=== PATIENT | male | born 1995 | race Hispanic/Latino ===

== ENCOUNTER 2023-11-08 10:28 | Emergency (ER) | payer SELFPAY ==
--- NOTE | ~2023-11-08 | CT_ITS ---
EXAMINATION: CT abdomen pelvis wo con DATE: 11/08/2023 13:02 INDICATION: Upper abdominal pain. TECHNIQUE: Computed tomography (CT) of the abdomen and pelvis was performed without intravenous contr ast. Automated exposure control and iterative reconstruction technique were employed. The dose-length product was 705.75 mGy-cm. COMPARISON: None. FINDINGS: The visualized portions of the lung bases demonstrate mild atelectasis. No pleural effusion . The heart size is normal. No pericardial effusion. The liver is normal. There are gallstones in the gallbladder, which is distended. Gallbladder wall thickening is noted. There is pericholecystic fat stranding. The spleen, pancreas, adrenal glands, and kidneys are normal. There are no dilated loops o f bowel. The appendix is normal. There are no pathologically enlarged lymph nodes. There is no free i ntraperitoneal fluid. There is mild thoracic spondylosis. IMPRESSION: 1. Acute cholecystitis. Reviewed, dictated and finalized at [facility]. IMPRESSION: 1. Acute cholecystitis.
[2023-11-08 10:50] VITALS: BP 135/87; PULSE 102; RESP 18; TEMP 36.1; O2SAT 99
[2023-11-08 11:28] LABS: Basophils Percent Auto 0.3 % (0.2-1.2); Eosinophils Percent Auto 0.1 % (0-4.4); Hematocrit 44.3 % (42.0-52.0); Hemoglobin 14.7 g/dL (14.0-18.0); Immature Granulocyte Absolute 0.06 K/mm3 (0.00-0.031); Immature Granulocyte Percent A 0.4 % (0-0.5); Lymphocytes Absolute Auto 1.72 K/mm3 (0.9-3.2); Lymphocytes Percent Auto 10.9 % (18.3-44.2); Mean Corpuscular HGB Conc 33.2 g/dl (32-36); Mean Corpuscular Hemoglobin 29.1 pg (26-34); Mean Corpuscular Volume 87.7 fl (80-100); Mean Platelet Volume 9.1 fl (7.4-10.4); Monocytes Absolute Auto 1.5 K/mm3 (0.1-0.6); Monocytes Percent Auto 9.7 % (2.6-8.5); Neutrophils Absolute Auto 12.5 K/mm3 (1.3-6.7); Neutrophils Percent Auto 78.6 % (45.5-73.1); Platelet Count Result 396 k/mm3 (150-375); Red Blood Count 5.05 M/mm3 (4.6-6.20); Red Cell Distribution Width 12.7 % (11.5-14.5); White Blood Count 15.8 K/mm3 (4.5-10.0)
[2023-11-08 11:48] LABS: Alanine Aminotransferase 40 U/L (6-50); Albumin Level 4.8 g/dL (3.5-5.1); Alkaline Phosphatase 69 U/L (38-126); Anion Gap 7 mmol/L (4-12); Aspartate Amino Transferase 51 U/L (17-59); Bilirubin,Total 1.3 mg/dL (0.2-1.3); Blood Urea Nitrogen 11 mg/dL (9-20); Calcium 9.8 mg/dL (8.4-10.2); Carbon Dioxide 26 mmol/L (22-30); Chloride 103 mmol/L (98-107); Estimated CRCL calculation 147 ml/min; Estimated Glomerular Filt Rate > 60; Glucose 114 mg/dL (65-110); Lipase 60 U/L (23-300); Potassium 4.6 mmol/L (3.4-5.0); Sodium 136 mmol/L (137-145)
[2023-11-08 12:33] LABS: Appearance Urine Turbid (Clear); Bacteria Urine None Seen /hpf; Bilirubin Urine Negative (Negative); Blood Urine 1+ (Negative); Color Urine Yellow (Yellow); Glucose Urine UA Negative (Negative); Ketones Urine Negative (Negative); Leukocyte Esterase Ur Negative LEU/UL (Negative); Nitrate Urine Negative (Negative); Non Pathogenic Casts 0-2; Protein Urine Negative (Negative); RBC Urine 21-50 /hpf (0-2); Specific Grav Ur 1.016 (1.001-1.035); Squamous Epithelial Cell Urine None Seen /hpf (Few); Urobilinogen Urine 0.2 mg/dL (<2.0); WBC Urine 0-5 /hpf (0-3); pH Urine 7.5 (5.0-9.0)
[2023-11-08 12:34] LABS: Add Urine Microscopic? YES
[2023-11-08] MEDS: FAMOTIDINE 20 MG/2 ML VIAL IV PUSH (12:42)
[2023-11-08] MEDS: KETOROLAC 15 MG/ML VIAL (*BKC) IV PUSH (12:43)
--- NOTE | 2023-11-08 13:12 | ED.ABDPAIN ---
HPI - Abdominal Pain General Chief Complaint: Abdominal Pain Stated Complaint: abd pain x4 days Time Seen by Provider: 11/08/23 12:11 History of Present Illness HPI narrative: Pt presents with upper abdominal pain radiating through to the back for 4 days. Pt denies urinary symptoms or nausea or vomiting. Pt says he has not been able to move bowels for 4 days. Pt denies fever. Related Data Allergies Allergy/AdvReac Type Severity Reaction Status Date / Time No Known Allergies Allergy Verified 11/08/23 12:35 Review of Systems Review of Systems: All systems reviewed & are unremarkable except as noted in HPI and below Exam Const: General: healthy appearing and no acute distress Nutritional Appearance: well nourished Orientation/consciousness: patient oriented x3 Limitations: no limitations Chest: Chest palpation & inspection: normal inspection of the chest Resp: Effort & Inspection: normal respiratory effort Auscultation: clear to auscultation bilaterally Cardio: Rate: regular rate GI: GI Palp: Yes Soft to palpation and Yes Tenderness to palpation present (GI) (mild epigastric) Auscultation: normal bowel sounds Back/Spine/Pelvis: Back: CVA tenderness (right) Skin: General skin exam: normal color Rashes: no rashes Wounds: no wounds Neuro: General: patient oriented x3, moves all extremities, no meningeal signs and no focal motor deficits Speech: normal speech Extrem: General: normal to inspection and no clubbing, cyanosis or edema Course Vital Signs Vital signs: Vital Signs Temperature 97.0 F L 11/08/23 10:50 Pulse Rate 102 H 11/08/23 10:50 Respiratory Rate 18 11/08/23 10:50 Blood Pressure 135/87 11/08/23 10:50 Pulse Oximetry 99 11/08/23 10:50 Oxygen Delivery Room Air 11/08/23 10:50 Temperature 97.0 F L 11/08/23 10:50 Pulse Rate 75 11/08/23 13:46 Respiratory Rate 16 11/08/23 13:46 Blood Pressure 132/87 11/08/23 13:46 Pulse Oximetry 100 11/08/23 13:46 Oxygen Delivery Room Air 11/08/23 10:50 MDM - Abdominal Pain MDM Narrative Medical decision making narrative: Discussed with Dr Morris said to send home on cipro or augmentin and pain medicine and have follow up in office for surgery when GB calmed down. discussed with pt through night worker and pt understands and agrees to follow up with Dr Morris. Pt was instructed to return with increased pain or vomiting or fever or any concerns. He verbalized understanding with intermpreter. Differential Diagnosis Differential diagnosis: Likely abdominal pain, calculus of kidney, constipation, gastroenteritis, pancreatitis and small bowel obstruction Lab Data 11/08/23 11:22 11/08/23 11:22 Labs: Lab Results 11/08/23 11/08/23 Range/Units 11:22 12:18 WBC 15.8 H (4.5-10.0) K/mm3 RBC 5.05 (4.6-6.20) M/mm3 Hgb 14.7 (14.0-18.0) g/dL Hct 44.3 (42.0-52.0) % MCV 87.7 (80-100) fl MCH 29.1 (26-34) pg MCHC 33.2 (32-36) g/dl RDW 12.7 (11.5-14.5) % Plt Count 396 H (150-375) k/mm3 MPV 9.1 (7.4-10.4) fl Immature Gran % (Auto) 0.4 (0-0.5) % Neut % (Auto) 78.6 H (45.5-73.1) % Lymph % (Auto) 10.9 L (18.3-44.2) % Glenn % (Auto) 9.7 H (2.6-8.5) % Eos % (Auto) 0.1 (0-4.4) % Baso % (Auto) 0.3 (0.2-1.2) % Lymph # (Auto) 1.72 (0.9-3.2) K/mm3 Glenn # (Auto) 1.5 H (0.1-0.6) K/mm3 Eos # (Auto) 0.0 (0-0.3) K/mm3 Baso # (Auto) 0.0 (0.0-0.1) K/mm3 Abs Immat Gran (auto) 0.06 H (0.00-0.031) K/mm3 Absolute Neuts (auto) 12.5 H (1.3-6.7) K/mm3 Absolute Nucleated RBC 0.000 (0.0-0.012) K/mm3 Nucleated RBC % 0.0 (0.0-0.2) % Sodium 136 L (137-145) mmol/L Potassium 4.6 (3.4-5.0) mmol/L Chloride 103 (98-107) mmol/L Carbon Dioxide 26 (22-30) mmol/L Anion Gap 7 (4-12) mmol/L BUN 11 (9-20) mg/dL Creatinine 0.60 L (0.7-1.3) mg/dL Estim Creat Clear Calc 147 ml/min Estimated GFR > 60 (59 - ) Glucose 114
[2023-11-08 13:46] VITALS: BP 132/87; PULSE 75; RESP 16; O2SAT 100
== END 2023-11-08 14:45 | disposition home or self-care (01) ==
PROVIDERS: Emergency Medicine; Emergency Provider Emergency Medicine
DX: K81.0 Acute cholecystitis (principal)
CPT/HCPCS: 36415; 74176; 80053; 81001; 83690; 85025; 96374; 96375; 99284; J1885

== ENCOUNTER 2023-11-10 09:42 | Inpatient (IN) | payer SELFPAY ==
[2023-11-10] VITALS (15 sets, daily range): BP systolic 111–157; BP diastolic 77–96; PULSE 64–98; RESP 16–27; TEMP 36.9–37; O2SAT 96–100; BMI 32.7
--- NOTE | ~2023-11-10 | US_ITS ---
US right upper quadrant DATE: 11/10/2023 10:50 INDICATION: Right upper quadrant abdominal pain TECHNIQUE: Real-time imaging of the liver, pancreas, gallbladder COMPARISON: 11/08/2023 CT abdomen pelvis FINDINGS: No hepatic or pancreatic space-occupying mass lesion is evident. Normal hepatopedal portal venous flow direction. The common bile duct measures up to 5.9 mm, within upper normal range. There is sludge in the dependent aspect of the gallbladder. A single approximately similar gallstone is noted. The gallbladder wall measures up to approximately 4 mm thickness. Negative sonographic Murp hy's sign is not necessarily of clinical value given the fact that the patient is reportedly on morph ine. IMPRESSION: Cholelithiasis and gallbladder wall thickening, sludge in the dependent gallbladder. Acut e cholecystitis is suspected based upon the sonographic and recent CT abdomen findings. Reviewed, dictated and finalized at [facility]. Reviewed, dictated and finalized at location [facility]. IMPRESSION: Cholelithiasis and gallbladder wall thickening, sludge in the depen dent gallbladder. Acute cholecystitis is suspected based upon the sonographic a nd recent CT abdomen findings.
--- NOTE | 2023-11-10 09:53 | ED.ABDPAIN ---
HPI - Abdominal Pain General Chief Complaint: Abdominal Pain <FELICIA Wilson Last Filed: 11/10/23 17:12> Stated Complaint: Right Flank Pain, Vomiting <FELICIA Wilson Last Filed: 11/10/23 17:12> Time Seen by Provider: 11/10/23 09:45 <FELICIA Wilson Last Filed: 11/10/23 17:12> Source: patient and credit compliance officer <FELICIA Wilson Last Filed: 11/10/23 17:12> Mode of arrival: ambulatory <FELICIA Wilson Last Filed: 11/10/23 17:12> Limitations: language barrier <FELICIA Wilson Last Filed: 11/10/23 17:12> History of Present Illness HPI narrative: This is a 27-year-old male who speaks Bahamian and is here for chief complaint of right upper quadrant pain for the past several days. Patient reports that he was just here 2 days ago with diagnosis of acute cholecystitis. It was felt that he was able to go home. He has had increasing pain and increasing vomiting. He is unable to tolerate water without vomiting. Patient reports the pain is still located in the right upper quadrant radiates to the right flank. Denies GI bleeding symptoms, chest pain, shortness of breath, cough, fevers, chills. <Jaret Abebe PA-C - Last Filed: 11/10/23 17:12> Related Data Allergies/Adverse Reactions: Allergies Allergy/AdvReac Type Severity Reaction Status Date / Time No Known Allergies Allergy Verified 11/10/23 09:54 <FELICIA Wilson Last Filed: 11/10/23 17:12> Review of Systems Review of Systems: All systems as dictated in HPI <FELICIA Wilson Last Filed: 11/10/23 17:12> [facility] Social History Social History: Social History Smoking status: Never smoker Alcohol intake: never Substance use: never Do You Feel Safe in your Home?: Yes Lack of Transportation: No Lack of Food: Never True Current Housing: I Have Housing Concerned About Future Housing: No Difficulty Paying Gas/Electric Bills: No Difficulty Paying for Meds: No Currently Unemployed: No Education: High School Diploma/GED Difficulty w/ Childcare or Family Care: No Spiritual care concerns: No <Jaret Abebe PA-C - Last Filed: 11/10/23 17:12> Exam Narrative: GENERAL: Well-appearing, well-nourished, and in no acute distress. HEAD: Normocephalic, atraumatic. EYES: PERRLA and EOMI. ENT: Nares clear, no rhinorrhea or epistaxis. Mucous membranes moist. Oropharynx without tonsillar hypertrophy exudate or other lesions. NECK: Supple. No adenopathy or masses. CHEST: No respiratory distress. Clear to auscultation. No wheezes rales or rhonchi HEART: Regular rate and rhythm. No murmur heard. Normal peripheral pulses. ABDOMEN: Focal right upper quadrant tenderness present. Soft, otherwise nontender, nondistended, normal active bowel sounds. MSK: Normal range of motion. No edema. SKIN: Warm, dry, no rash. NEURO: Alert and oriented x3. No focal deficits. PSYCH: Normal mood and affect. <Jaret Abebe PA-C - Last Filed: 11/10/23 17:12> Course [employer]CLE SALESPERSON/PA Physician Supervision Agree with the management. Did see the patient he seemed to be comfortable . <Sly Alba MD - Last Filed: 11/10/23 14:11> Vital Signs Vital signs: Vital Signs Temperature 98.6 F 11/10/23 09:50 Pulse Rate 94 11/10/23 09:50 Respiratory Rate 27 H 11/10/23 09:50 Blood Pressure 157/93 H 11/10/23 09:50 Pulse Oximetry 99 11/10/23 09:50 Oxygen Delivery Room Air 11/10/23 09:50 Temperature 98.6 F 11/10/23 16:31 Pulse Rate 87 11/10/23 16:31 Respiratory Rate 16 11/10/23 16:31 Blood Pressure 142/89 H 11/10/23 16:31 Pulse Oximetry 98 11/10/23 16:31 Oxygen Delivery Room Air 11/10/23 14:06 <Jaret Abebe PA-C - Last Filed: 11/10/23 17:12> Vital Signs Temperature 98.6 F 11/10/23 09:50 Pulse Rate 94 11/10/23 09:50 Respiratory Rate 27 H 11/10/23 09:50 Blood Pressure 157/93 H 11/10/23 09:50 Pulse Oximetry 99 0
--- NOTE | 2023-11-10 09:54 | ECG_ITS ---
SEE SCANNED COPY FOR CONFIRMED REPORT MTDD
[2023-11-10] MEDS: SODIUM CHLORIDE 0.9% IV 1,000 ML 999 ML IV CONT (10:03)
[2023-11-10] MEDS: MORPHINE SULFATE (*CRX) 4 MG/ML INJ IV PUSH ×6 (10:03→23:00)
[2023-11-10] MEDS: ONDANSETRON INJ 4 MG/2 ML VIAL IV PUSH ×3 (10:03→17:48)
[2023-11-10 10:24] LABS: Partial Thromboplastin Time 28.3 Seconds (22.3-36.8)
[2023-11-10 10:25] LABS: Alanine Aminotransferase 84 U/L (6-50); Albumin Level 4.8 g/dL (3.5-5.1); Alkaline Phosphatase 119 U/L (38-126); Anion Gap 9 mmol/L (4-12); Aspartate Amino Transferase 59 U/L (17-59); Bilirubin,Total 0.9 mg/dL (0.2-1.3); Blood Urea Nitrogen 12 mg/dL (9-20); Calcium 10.5 mg/dL (8.4-10.2); Carbon Dioxide 28 mmol/L (22-30); Chloride 101 mmol/L (98-107); Estimated CRCL calculation 132 ml/min; Estimated Glomerular Filt Rate > 60; Glucose 112 mg/dL (65-110); Lipase 46 U/L (23-300); Potassium 4.1 mmol/L (3.4-5.0); Sodium 138 mmol/L (137-145)
[2023-11-10 10:40] LABS: Basophils Percent Auto 0.3 % (0.2-1.2); Eosinophils Absolute Auto 0.1 K/mm3 (0-0.3); Eosinophils Percent Auto 1.1 % (0-4.4); Hemoglobin 14.6 g/dL (14.0-18.0); Immature Granulocyte Absolute 0.03 K/mm3 (0.00-0.031); Immature Granulocyte Percent A 0.3 % (0-0.5); Lymphocytes Absolute Auto 1.14 K/mm3 (0.9-3.2); Lymphocytes Percent Auto 10.9 % (18.3-44.2); Mean Corpuscular HGB Conc 33.2 g/dl (32-36); Mean Corpuscular Hemoglobin 29.1 pg (26-34); Mean Corpuscular Volume 87.6 fl (80-100); Mean Platelet Volume 8.9 fl (7.4-10.4); Monocytes Absolute Auto 0.9 K/mm3 (0.1-0.6); Monocytes Percent Auto 8.7 % (2.6-8.5); Neutrophils Absolute Auto 8.2 K/mm3 (1.3-6.7); Neutrophils Percent Auto 78.7 % (45.5-73.1); Platelet Count Result 436 k/mm3 (150-375); Red Blood Count 5.02 M/mm3 (4.6-6.20); Red Cell Distribution Width 12.5 % (11.5-14.5); White Blood Count 10.5 K/mm3 (4.5-10.0)
[2023-11-10] MEDS: HYDROmorphone HCL INJ (*CRX) 1 MG/ML SYR 0.5 MG IV PUSH (11:21)
[2023-11-10 11:42] LABS: Appearance Urine Clear (Clear); Bacteria Urine None Seen /hpf; Bilirubin Urine Negative (Negative); Blood Urine Non-Hemolyzed Trace (Negative); Color Urine Yellow (Yellow); Glucose Urine UA Negative (Negative); Ketones Urine Trace mg/dL (Negative); Leukocyte Esterase Ur Negative LEU/UL (Negative); Nitrate Urine Negative (Negative); Non Pathogenic Casts 0-2; Protein Urine Negative (Negative); Specific Grav Ur 1.007 (1.001-1.035); Squamous Epithelial Cell Urine None Seen /hpf (Few); Urobilinogen Urine 0.2 mg/dL (<2.0); WBC Urine 0-5 /hpf (0-3); pH Urine 7.5 (5.0-9.0)
[2023-11-10 11:54] LABS: Add Urine Microscopic? YES
[2023-11-10] MEDS: PIPERACILLN/TAZ 3.375GM/NS50ML 3.375 GM/50 ML BAG IVPB ×2 (12:06→17:56)
--- NOTE | 2023-11-10 13:55 | ADMGEN ---
This patient, Iggy Reeder, was admitted to 2 Medical Room 241-01 at 1240. Patient/family oriented to hospital policies and general routines including ID bracelet, bed and alarms, visiting hours, pain management, procedures, bathroom and other care routines, personal items, smoking policy, room service/diet, and visiting hours. Information on how to activate the Rapid Response Team has been discussed. Patient/Family are encouraged to report perceived risks to care and to ask questions if they do not understand what they are told or what they should do.
[2023-11-10] MEDS: SODIUM CHLORIDE 0.9% IV 1,000 ML 125 ML IV CONT (17:48)
--- NOTE | 2023-11-10 22:55 | PM.IMHP ---
H&P: HPI History of Present Illness Date/Time: 11/10/23 22:55 Chief Complaint: Right upper quadrant pain Narrative: Patient is a 27-year-old man with limited ability to speak Macedonian. He came to the emergency room 2 days ago with a 4 day history of right upper quadrant abdominal pain and nausea. He had an elevated white count and imaging suggest a cholecystitis. Patient did improve with some analgesics and was discharged with antibiotics and oral analgesics. His pain returned and he then developed significant vomiting such that he could keep nothing down. He came back to the emergency room. Ultrasound today again showed gallstones and cholecystitis. Patient is hungry and asked to have something to eat. His white blood cell count is actually lower today than it was 2 days ago. Today it is 10.5 and on the it was 15.8. Liver enzymes and lipase have been normal although the ALT is slightly elevated at 80 today. Patient is admitted now for cholecystitis with protracted vomiting. He has been started on Zosyn and analgesics have been ordered. A low-fat diet has been ordered. He is healthy other than his present illness. Review of Systems Review of Systems: All systems reviewed & are unremarkable except as noted in HPI and below (HPI and those items noted below) Constitutional: Constitutional: Denies chills and Denies fever(s) Cardiovascular: Cardiovascular: Denies chest pain, Denies diaphoresis, Denies dyspnea and Denies paroxysmal nocturnal dyspnea Respiratory: Respiratory: Denies chest congestion, Denies cough and Denies dyspnea Integumentary/Breasts: Skin/Breast: Denies lesions and Denies rash PMF Social History Social History Smoking status: Never smoker Alcohol intake: never Substance use: never Do You Feel Safe in your Home?: Yes Lack of Transportation: No Lack of Food: Never True Current Housing: I Have Housing Concerned About Future Housing: No Difficulty Paying Gas/Electric Bills: No Difficulty Paying for Meds: No Currently Unemployed: No Education: High School Diploma/GED Difficulty w/ Childcare or Family Care: No Spiritual care concerns: No Meds Home Medications and Allergies Home Medications Medication Instructions Recorded Confirmed Type ciprofloxacin HCl 500 mg tablet 500 mg PO Q12H #20 tabs 11/08/23 11/10/23 Rx (Cipro) hydrocodone 5 mg-acetaminophen 325 1 tablet PO Q6H PRN pain #14 tabs 11/08/23 11/10/23 Rx mg tablet Allergies Allergy/AdvReac Type Severity Reaction Status Date / Time No Known Allergies Allergy Verified 11/10/23 09:54 Vital Signs Vital Signs - 24 hr 11/10/23 09:50 11/10/23 09:50 11/10/23 09:53 Temperature 37.0 C Pulse Rate 94 96 88 Respiratory Rate 27 H 26 H 25 H Blood Pressure 157/93 H 157/93 H Pulse Oximetry 99 99 98 Oxygen Delivery Room Air 11/10/23 10:00 11/10/23 10:15 11/10/23 10:35 Temperature Pulse Rate 93 98 79 Respiratory Rate 19 19 23 H Blood Pressure Pulse Oximetry 100 99 99 Oxygen Delivery 11/10/23 10:45 11/10/23 10:53 11/10/23 11:00 Temperature Pulse Rate 88 77 64 Respiratory Rate 19 24 H 20 Blood Pressure 142/82 H Pulse Oximetry 98 98 98 Oxygen Delivery 11/10/23 11:18 11/10/23 11:30 11/10/23 11:45 Temperature Pulse Rate 72 85 90 Respiratory Rate 21 H 21 H 20 Blood Pressure 114/96 H Pulse Oximetry 96 97 98 Oxygen Delivery 11/10/23 12:00 11/10/23 12:15 11/10/23 14:06 Temperature Pulse Rate 90 73 Respiratory Rate 17 18 Blood Pressure 130/83 111/77 Pulse Oximetry 99 96 Oxygen Delivery Room Air 11/10/23 16:31 11/10/23 19:19 Temperature 37.0 C 36.9 C Pulse Rate 87 81 Respiratory Rate 16 18 Blood Pressure 142/89 H 146/84 H Pulse Oximetry 98 96 Oxygen Delivery Exam Const: General: comfortable, no acute distress, alert and awake HENMT: Head: normocephalic and atraumatic
[2023-11-11] MEDS: PIPERACILLN/TAZ 3.375GM/NS50ML 3.375 GM/50 ML BAG IVPB ×5 (00:19→23:49)
[2023-11-11] MEDS: MORPHINE SULFATE (*CRX) 4 MG/ML INJ IV PUSH ×3 (01:05→05:50)
[2023-11-11] MEDS: SODIUM CHLORIDE 0.9% IV 1,000 ML 125 ML IV CONT ×2 (03:00→11:39)
[2023-11-11 05:25] VITALS: BP 136/87; PULSE 69; RESP 18; TEMP 37.1; O2SAT 95
[2023-11-11] MEDS: MORPHINE SULFATE (*CRX) 2 MG/ML INJ IV PUSH ×3 (08:18→17:45)
--- NOTE | 2023-11-11 08:42 | PM.PNGS ---
Progress Note: A&P Assessment and Plan (1) Cholecystitis with cholelithiasis: Qualifiers: Cholelithiasis location: gallbladder Cholecystitis acuity: acute and chronic Biliary obstruction: without biliary obstruction Qualified Code(s): K80.12 - Calculus of gallbladder with acute and chronic cholecystitis without obstruction Code(s): K80.10 - Calculus of gallbladder with chronic cholecystitis without obstruction Status: Acute Assessment and Plan: Patient had emesis yesterday x1 after trying some solid food. He is not nauseated at all today but still having right upper quadrant pain he would like to try some solid food again today. The procedure of laparoscopic cholecystectomy, risks, benefits, alternatives and usual time of recovery was discussed. The typical length of the operation as well as time off work were discussed. All this was done through audio video professional interpretive services. I explained that since he does not have a worsening condition or time sensitive condition, we will not be able to do the surgery on the weekend but I will try to get this done tomorrow or as soon as possible otherwise. All questions were answered. He understands and agrees to go ahead. Subjective Subjective Date/Time Seen: 11/11/23 08:42 Patient reports: still having pain and vomiting Review of Systems Review of Systems: All systems reviewed & are unremarkable except as noted in HPI and below (HPI) Exam Const: General: comfortable and no acute distress Orientation/consciousness: patient oriented x3 GI: GI Palp: Yes Soft to palpation, Yes Tenderness to palpation present (GI) (Right upper quadrant), No Guarding due to palpation present (GI) and No Rebound tenderness present Auscultation: Hypoactive bowel sounds present Neuro: General: patient oriented x3 and no focal motor deficits Extrem: General: no calf tenderness and no edema Psych: Affect: normal affect Insight: Good insight present (Psych) Judgement: Good judgement present (Psych) Objective Data Vital Signs Vital Signs: Vital Signs - 24 hr 11/10/23 09:50 11/10/23 09:50 11/10/23 09:53 Temperature 37.0 C Pulse Rate 94 96 88 Respiratory Rate 27 H 26 H 25 H Blood Pressure 157/93 H 157/93 H Pulse Oximetry 99 99 98 Oxygen Delivery Room Air 11/10/23 10:00 11/10/23 10:15 11/10/23 10:35 Temperature Pulse Rate 93 98 79 Respiratory Rate 19 19 23 H Blood Pressure Pulse Oximetry 100 99 99 Oxygen Delivery 11/10/23 10:45 11/10/23 10:53 11/10/23 11:00 Temperature Pulse Rate 88 77 64 Respiratory Rate 19 24 H 20 Blood Pressure 142/82 H Pulse Oximetry 98 98 98 Oxygen Delivery 11/10/23 11:18 11/10/23 11:30 11/10/23 11:45 Temperature Pulse Rate 72 85 90 Respiratory Rate 21 H 21 H 20 Blood Pressure 114/96 H Pulse Oximetry 96 97 98 Oxygen Delivery 11/10/23 12:00 11/10/23 12:15 11/10/23 14:06 Temperature Pulse Rate 90 73 Respiratory Rate 17 18 Blood Pressure 130/83 111/77 Pulse Oximetry 99 96 Oxygen Delivery Room Air 11/10/23 16:31 11/10/23 19:19 11/11/23 05:25 Temperature 37.0 C 36.9 C 37.1 C Pulse Rate 87 81 69 Respiratory Rate 16 18 18 Blood Pressure 142/89 H 146/84 H 136/87 Pulse Oximetry 98 96 95 Oxygen Delivery Intake/Output Intake/Output: Intake & Output 11/08/23 11/09/23 11/10/23 11/11/23 23:59 23:59 23:59 23:59 Intake Total 1100 1050 Balance 1100 1050 Meds/Results Medications: Active Medications Generic Name Dose Route Start Last Admin Trade Name Freq PRN Reason Stop Dose Admin Sodium Chloride 1,000 mls @ 125 mls/hr 11/10/23 11:55 11/11/23 03:00 Normal Saline Iv IV CONT 125 mls/hr .Q8H MILTON Administration Piperacillin/Tazobactam/Dextrose 3.375 gm in 50 mls @ 100 mls/hr 11/10/23 18:00 11/11/23 05:50 Zosyn 3.375 Gm/Ns 50 Ml IVPB 100 mls/hr Q6H MILTON Administration Morphine Sulfate 2 mg 11/10/23 11:51 11/11/23 08:1
[2023-11-11 14:27] VITALS: BP 138/86; PULSE 73; RESP 12; TEMP 36.5; O2SAT 97
[2023-11-11] MEDS: SODIUM CHLORIDE 0.9% IV 1,000 ML 80 ML IV CONT (18:24)
--- NOTE | 2023-11-11 21:57 | PC.NURSE ---
Career Specialist used for assessment; Rad #[id number]
[2023-11-11] MEDS: oxyCODONE/ACETAMINOPHEN (*CRX) 10-325 MG TABLET 1 TAB PO (22:00)
[2023-11-11 22:03] VITALS: BP 139/90; PULSE 64; RESP 18; TEMP 37; O2SAT 99
[2023-11-12] MEDS: MORPHINE SULFATE (*CRX) 4 MG/ML INJ IV PUSH ×4 (03:54→12:03)
[2023-11-12] MEDS: PIPERACILLN/TAZ 3.375GM/NS50ML 3.375 GM/50 ML BAG IVPB ×4 (05:55→23:34)
[2023-11-12 05:57] LABS: Hematocrit 41.4 % (42.0-52.0); Hemoglobin 13.6 g/dL (14.0-18.0); Mean Corpuscular HGB Conc 32.9 g/dl (32-36); Mean Corpuscular Hemoglobin 28.8 pg (26-34); Mean Corpuscular Volume 87.7 fl (80-100); Mean Platelet Volume 9.2 fl (7.4-10.4); Platelet Count Result 411 k/mm3 (150-375); Red Blood Count 4.72 M/mm3 (4.6-6.20); Red Cell Distribution Width 12.5 % (11.5-14.5); White Blood Count 10.1 K/mm3 (4.5-10.0)
[2023-11-12 06:12] LABS: Alanine Aminotransferase 201 U/L (6-50); Albumin Level 4.2 g/dL (3.5-5.1); Alkaline Phosphatase 131 U/L (38-126); Anion Gap 6 mmol/L (4-12); Aspartate Amino Transferase 74 U/L (17-59); Bilirubin,Total 0.7 mg/dL (0.2-1.3); Blood Urea Nitrogen 6 mg/dL (9-20); Calcium 9.4 mg/dL (8.4-10.2); Carbon Dioxide 28 mmol/L (22-30); Chloride 103 mmol/L (98-107); Estimated CRCL calculation 150 ml/min; Estimated Glomerular Filt Rate > 60; Glucose 101 mg/dL (65-110); Lipase 49 U/L (23-300); Potassium 3.7 mmol/L (3.4-5.0); Sodium 137 mmol/L (137-145)
[2023-11-12 06:15] VITALS: BP 137/92; PULSE 71; RESP 14; TEMP 37.2; O2SAT 100
[2023-11-12] MEDS: ENOXAPARIN 40 MG/0.4 ML SYRINGE SUB-Q (09:08)
[2023-11-12] MEDS: SODIUM CHLORIDE 0.9% IV 1,000 ML 80 ML IV CONT ×2 (09:08→21:46)
[2023-11-12] MEDS: oxyCODONE/ACETAMINOPHEN (*CRX) 10-325 MG TABLET 1 TAB PO ×2 (15:27→22:00)
[2023-11-12 16:00] VITALS: BP 128/80; PULSE 84; RESP 14; TEMP 37.1; O2SAT 99
--- NOTE | 2023-11-12 16:01 | PM.PNGS ---
Progress Note: A&P Assessment and Plan (1) Cholecystitis with cholelithiasis: Qualifiers: Cholelithiasis location: gallbladder Cholecystitis acuity: acute and chronic Biliary obstruction: without biliary obstruction Qualified Code(s): K80.12 - Calculus of gallbladder with acute and chronic cholecystitis without obstruction Code(s): K80.10 - Calculus of gallbladder with chronic cholecystitis without obstruction Status: Acute Assessment and Plan: Patient tolerating a solid diet better today. No more vomiting. I again discussed the details of a laparoscopic cholecystectomy with a video hospice home health aide. I answered all of his questions. We have added him onto the surgery schedule on Sunday. Continue IV Zosyn. We will continue a low-fat diet today and make NPO after midnight tomorrow night. Plan I have discussed the patient's case and plan of care with Dr. Morris. Subjective Subjective Date/Time Seen: 11/12/23 10:01 Interval history: This is a 27-year-old who was admitted with acute cholecystitis. Chart reviewed. Our entire conversation and exam was performed with the video hospice home health aide. He is doing better with solid foods. He reports his abdominal pain is constant, but is tolerable with analgesics. No nausea or vomiting after trying solids again. No other complaints at this time. Exam Const: General: comfortable and no acute distress GI: Inspection: non-distended GI Palp: Yes Soft to palpation, Yes Tenderness to palpation present (GI) (Right upper quadrant), Yes Guarding due to palpation present (GI) (Right upper quadrant) and No Rebound tenderness present Auscultation: normal bowel sounds Objective Data Vital Signs Vital Signs: Vital Signs - 24 hr 11/11/23 22:03 11/11/23 22:15 11/12/23 06:15 Temperature 98.6 F 98.9 F Pulse Rate 64 71 Respiratory Rate 18 14 Blood Pressure 139/90 137/92 H Pulse Oximetry 99 100 Oxygen Delivery Room Air 11/12/23 08:00 Temperature Pulse Rate Respiratory Rate Blood Pressure Pulse Oximetry Oxygen Delivery Room Air Intake/Output Intake/Output: Intake & Output 11/09/23 11/10/23 11/11/23 11/12/23 23:59 23:59 23:59 23:59 Intake Total 1100 3623.8 1590 Balance 1100 3623.8 1590 Meds/Results Medications: Active Medications Generic Name Dose Route Start Last Admin Trade Name Freq PRN Reason Stop Dose Admin Acetaminophen 500 mg 11/11/23 17:51 Acetaminophen 500 Mg Tablet PO Q6H PRN Pain Rated 1-3 Diphenhydramine HCl 25 mg 11/11/23 17:51 Diphenhydramine Hcl Inj 50 Mg/Ml Vial IV PUSH Q6H PRN Itching Enoxaparin Sodium 40 mg 11/12/23 09:00 11/12/23 09:08 Enoxaparin 40 Mg/0.4 Ml Syringe SUB-Q 40 mg DAILY MILTON Administration Sodium Chloride 1,000 mls @ 80 mls/hr 11/10/23 11:55 11/12/23 09:08 Normal Saline Iv IV CONT 80 mls/hr .[id number] MILTON Administration Piperacillin/Tazobactam/Dextrose 3.375 gm in 50 mls @ 100 mls/hr 11/10/23 18:00 11/12/23 12:04 Zosyn 3.375 Gm/Ns 50 Ml IVPB 100 mls/hr Q6H MILTON Administration Ibuprofen 800 mg in 200 mls @ 400 mls/hr 11/11/23 17:51 Caldolor 800 Mg/200 Ml IVPB Q6H PRN Breakthrough Pain Rated 1-3 or NPO Morphine Sulfate 2 mg 11/11/23 17:51 Morphine Sulfate (*Crx) 2 Mg/Ml Inj IV PUSH Q2H PRN Breakthrough Pain Rated 4-6 or NPO Morphine Sulfate 4 mg 11/11/23 17:51 11/12/23 12:03 Morphine Sulfate (*Crx) 4 Mg/Ml Inj IV PUSH 4 mg Q2H PRN Administration Breakthrough Pain Rated 7-10 or NPO Naloxone HCl 0.1 mg 11/11/23 17:51 Naloxone Hcl 0.4 Mg/Ml Vial IV PUSH Q2M PRN Opiate Reversal Ondansetron HCl 4 mg 11/10/23 11:51 11/10/23 17:48 Ondansetron Inj 4 Mg/2 Ml Vial IV PUSH 4 mg Q4H PRN Administration Nausea Oxycodone/Acetaminophen 1 tablet 11/11/23 17:51 Oxycodone/Acetaminophen (*Crx) 5-325 Mg Tablet PO Q4H PRN Pain Rated 4-6 Oxycodone/Neil
[2023-11-13] VITALS: BP 146/100; PULSE 67; RESP 18; TEMP 36.6; O2SAT 100
[2023-11-13] MEDS: IBUPROFEN IV 800 MG/200 ML 800 MG/200 ML BAG 400 MG IVPB ×2 (00:06→20:53)
[2023-11-13 05:34] VITALS: BP 125/75; PULSE 52; RESP 17; TEMP 36.4; O2SAT 100
[2023-11-13] MEDS: PIPERACILLN/TAZ 3.375GM/NS50ML 3.375 GM/50 ML BAG IVPB ×4 (05:38→23:16)
[2023-11-13 08:00] VITALS: BP 122/63; PULSE 71; RESP 18; TEMP 36.8; O2SAT 96
[2023-11-13] MEDS: ENOXAPARIN 40 MG/0.4 ML SYRINGE SUB-Q (09:00)
[2023-11-13] MEDS: oxyCODONE/ACETAMINOPHEN (*CRX) 10-325 MG TABLET 1 TAB PO ×2 (09:03→15:16)
[2023-11-13] MEDS: SODIUM CHLORIDE 0.9% IV 1,000 ML 80 ML IV CONT ×2 (11:25→23:16)
[2023-11-13 16:00] VITALS: BP 119/68; PULSE 63; RESP 18; TEMP 36.9; O2SAT 100
--- NOTE | 2023-11-13 16:31 | PM.PNGS ---
Progress Note: A&P Assessment and Plan (1) Cholecystitis with cholelithiasis: Qualifiers: Cholelithiasis location: gallbladder Cholecystitis acuity: acute and chronic Biliary obstruction: without biliary obstruction Qualified Code(s): K80.12 - Calculus of gallbladder with acute and chronic cholecystitis without obstruction Code(s): K80.10 - Calculus of gallbladder with chronic cholecystitis without obstruction Status: Acute Assessment and Plan: Plan to proceed with cholecystectomy tomorrow. Continue IV Zosyn. NPO after midnight for surgery tomorrow. Plan I have discussed the patient's case and plan of care with Dr. Morris. Subjective Subjective Date/Time Seen: 11/13/23 16:31 Patient reports: no new complaints, still having pain (same as yesterday) and tolerating a regular diet Interval history: Patient doing well today. Still having the same pain. No nausea or vomiting. No new complaints or issues. Entire conversation done with [id number] video food and nutrition supervisor. Exam Const: General: comfortable and no acute distress GI: Inspection: non-distended GI Palp: Yes Soft to palpation, Yes Tenderness to palpation present (GI) (RUQ), No Guarding due to palpation present (GI) and No Rebound tenderness present Auscultation: normal bowel sounds Objective Data Vital Signs Vital Signs: Vital Signs - 24 hr 11/12/23 21:45 11/13/23 00:00 11/13/23 05:34 Temperature 97.9 F 97.6 F Pulse Rate 67 52 L Respiratory Rate 18 17 Blood Pressure 146/100 H 125/75 Pulse Oximetry 100 100 Oxygen Delivery Room Air 11/13/23 08:00 11/13/23 08:00 Temperature 98.3 F Pulse Rate 71 Respiratory Rate 18 Blood Pressure 122/63 Pulse Oximetry 96 Oxygen Delivery Room Air Intake/Output Intake/Output: Intake & Output 11/10/23 11/11/23 11/12/23 11/13/23 23:59 23:59 23:59 23:59 Intake Total 1100 3623.8 3720 2090 Output Total 3 Balance 1100 3623.8 3720 2087 Meds/Results Medications: Active Medications Generic Name Dose Route Start Last Admin Trade Name Freq PRN Reason Stop Dose Admin Acetaminophen 500 mg 11/11/23 17:51 Acetaminophen 500 Mg Tablet PO Q6H PRN Pain Rated 1-3 Diphenhydramine HCl 25 mg 11/11/23 17:51 Diphenhydramine Hcl Inj 50 Mg/Ml Vial IV PUSH Q6H PRN Itching Enoxaparin Sodium 40 mg 11/12/23 09:00 11/13/23 09:00 Enoxaparin 40 Mg/0.4 Ml Syringe SUB-Q 40 mg DAILY MILTON Administration Sodium Chloride 1,000 mls @ 80 mls/hr 11/10/23 11:55 11/13/23 11:25 Normal Saline Iv IV CONT 80 mls/hr .[id number] MILTON Administration Piperacillin/Tazobactam/Dextrose 3.375 gm in 50 mls @ 100 mls/hr 11/10/23 18:00 11/13/23 11:24 Zosyn 3.375 Gm/Ns 50 Ml IVPB 100 mls/hr Q6H MILTON Administration Ibuprofen 800 mg in 200 mls @ 400 mls/hr 11/11/23 17:51 11/13/23 00:06 Caldolor 800 Mg/200 Ml IVPB 400 mls/hr Q6H PRN Administration Breakthrough Pain Rated 1-3 or NPO Morphine Sulfate 2 mg 11/11/23 17:51 Morphine Sulfate (*Crx) 2 Mg/Ml Inj IV PUSH Q2H PRN Breakthrough Pain Rated 4-6 or NPO Morphine Sulfate 4 mg 11/11/23 17:51 11/12/23 12:03 Morphine Sulfate (*Crx) 4 Mg/Ml Inj IV PUSH 4 mg Q2H PRN Administration Breakthrough Pain Rated 7-10 or NPO Naloxone HCl 0.1 mg 11/11/23 17:51 Naloxone Hcl 0.4 Mg/Ml Vial IV PUSH Q2M PRN Opiate Reversal Ondansetron HCl 4 mg 11/10/23 11:51 11/10/23 17:48 Ondansetron Inj 4 Mg/2 Ml Vial IV PUSH 4 mg Q4H PRN Administration Nausea Oxycodone/Acetaminophen 1 tablet 11/11/23 17:51 Oxycodone/Acetaminophen (*Crx) 5-325 Mg Tablet PO Q4H PRN Pain Rated 4-6 Oxycodone/Acetaminophen 1 tab 11/11/23 17:51 11/13/23 15:16 Oxycodone/Acetaminophen (*Crx) 10-325 Mg Tablet PO 1 tab Q6H PRN Administration Pain Rated 7-10 Radiology Results: ITS Impressions Upper Quadrant Ultrasound 11/10/23 10:55 IMPRESSION: Chol
--- NOTE | 2023-11-13 20:52 | PC.NURSE ---
Assessment completed with garment fitter: Jackelny #[id number]
[2023-11-13 21:00] VITALS: BP 129/84; PULSE 83; RESP 16; TEMP 36.6; O2SAT 98
[2023-11-14] VITALS (13 sets, daily range): BP systolic 122–143; BP diastolic 65–92; PULSE 57–76; RESP 12–20; TEMP 36.3–37; O2SAT 96–100
[2023-11-14 05:04] LABS: Hematocrit 44.4 % (42.0-52.0); Hemoglobin 14.8 g/dL (14.0-18.0); Mean Corpuscular HGB Conc 33.3 g/dl (32-36); Mean Corpuscular Hemoglobin 29.1 pg (26-34); Mean Corpuscular Volume 87.2 fl (80-100); Mean Platelet Volume 8.9 fl (7.4-10.4); Platelet Count Result 466 k/mm3 (150-375); Red Blood Count 5.09 M/mm3 (4.6-6.20); Red Cell Distribution Width 12.4 % (11.5-14.5); White Blood Count 9.2 K/mm3 (4.5-10.0)
[2023-11-14] MEDS: PIPERACILLN/TAZ 3.375GM/NS50ML 3.375 GM/50 ML BAG IVPB ×4 (05:15→23:36)
[2023-11-14 05:29] LABS: Alanine Aminotransferase 124 U/L (6-50); Albumin Level 4.4 g/dL (3.5-5.1); Alkaline Phosphatase 112 U/L (38-126); Anion Gap 10 mmol/L (4-12); Aspartate Amino Transferase 32 U/L (17-59); Bilirubin,Total 0.5 mg/dL (0.2-1.3); Blood Urea Nitrogen 13 mg/dL (9-20); Calcium 9.4 mg/dL (8.4-10.2); Carbon Dioxide 23 mmol/L (22-30); Chloride 106 mmol/L (98-107); Estimated CRCL calculation 132 ml/min; Estimated Glomerular Filt Rate > 60; Glucose 101 mg/dL (65-110); Potassium 4.1 mmol/L (3.4-5.0); Sodium 139 mmol/L (137-145)
[2023-11-14] MEDS: IBUPROFEN IV 800 MG/200 ML 800 MG/200 ML BAG 400 MG IVPB (05:46)
[2023-11-14] MEDS: ENOXAPARIN 40 MG/0.4 ML SYRINGE SUB-Q (08:16)
--- NOTE | 2023-11-14 10:24 | WPDHPUPDATE1 ---
History and Physical Update Update Date/Time: 11/14/23 10:24 History and Physical has been reviewed, including an updated exam of the patient. There are NO changes in the patient's condition. Risks, benefits, and alternatives have been discussed and questions answered. Patient agrees to proceed with procedure.
[2023-11-14] MEDS: LACTATED RINGERS 1,000 ML 30 ML IV CONT ×2 (10:41→15:34)
--- NOTE | 2023-11-14 12:33 | W.PM.PROC2 ---
Procedure Note - Detailed Date of Procedure 11/14/23 Pre-op Diagnosis Acute Cholecystitis with gallstones Post-op Diagnosis Same Procedure Performed Laparoscopic cholecystectomy Surgeon Levon Morris MD [employer] [facility] Anesthesia General and Local Indications Patient had nearly a week of severe right upper quadrant abdominal pain with nausea and vomiting. Imaging showed gallstones and acute cholecystitis. He has been admitted to the hospital and started on IV antibiotics. He has improved and is tolerating a low-fat diet. He is taken to surgery now for laparoscopic cholecystectomy. Findings This was an extremely difficult laparoscopic cholecystectomy. It was easily in the top 5% of cholecystectomies in degree of difficulty that I have performed. Patient had a very distended gallbladder that had purulent bile. Over half the gallbladder was intrahepatic with no ability to divide between the gallbladder and liver. She had some of the most tenacious adhesions to the gallbladder that I can ever remember seeing. These were very thickened up, probably close to a cm, and were very difficult to take down due to their attachment to the gallbladder and their propensity to bleed. Without taking these down there was no opportunity to dissect the gallbladder. On the medial aspect of the gallbladder, near the liver, I was attempting to take down these adhesions and encountered arterial bleeding. I suspect this was a rodger gastric vessel. We lost almost 400 cc of blood during the surgery due to the arterial bleeding. It was controlled with a clamp and then to 12 mm clips. The bleeding was 20 times what is usually encountered with a difficult gallbladder. The operative time was 2-1/2 hours which is easily 4 times the usual time spent on cholecystectomy done laparoscopically. I had to use Surgiflo on the gallbladder fossa to ensure hemostasis. This was due to the continual need to take some of the liver with the gallbladder to avoid entering the gallbladder and spilling stones. I had to place a postoperative drain during the surgery due to the infectious nature of the gallbladder and the bleeding with continual oozing of serosanguineous fluid. Description of Procedure Patient was taken to surgery and induced into general anesthesia. The abdomen is prepped and draped. Trocars were placed in the usual fashion using applied Rawporter optical trocars and a 5 mm camera. A varies needle was placed in the epigastric area to insufflate prior to placement of the 1st trocar. When all the trocars were in position, patient was placed in reverse Trendelenburg. The very fundus of the gallbladder was the only part visible as most of it was intrahepatic and on the posterior side covered with omental adhesions. The fundus of the gallbladder was adherent to the anterior abdominal wall in this area. I initially took these adhesions down sharply. I then freed some additional adhesions and used a laparoscopic aspirator to decompress the gallbladder. This returned clear bile suggestive of hydrops and a completely obstructing gallstone. The gallbladder wall was very thickened and we did not need to close the cholecystotomy. From there, we began the very difficult job of peeling the adhesions from the gallbladder. These were thick and encompassed the gallbladder that was not intrahepatic. We were able to do this with only mild amount of bleeding on the lateral and posterior surface of the gallbladder. However, while attempting to take these down on the medial aspect near the liver, we encountered some arterial bleeding. This was difficult to control. Almost all of the 400 cc blood loss was from the arterial bleeding. Eventually I was able to get a locking clamp over it that stop the bleeding. This seemed to be a perigastric artery as it was not really in the area of the cystic artery or right hepatic artery. It was more part of the adhesion up the medial wall of th
--- NOTE | 2023-11-14 12:34 | WPDANESEPPF ---
Anes - Initial Pre Proc Eval Procedure: Operation Date: 11/14/23 11:30 Proposed Procedures p Laparoscopic Cholecystectomy - Levon Morris MD Date/Time: 11/14/23 12:34 Surgeon: Levon Morris MD Pre Op Diagnosis: Acute Cholecystitis Patient Data Age: 27 Gender: M Height: 1.7 m Weight: 94.7 kg Last Vital Signs Temp 97.3 F L 11/14/23 10:43 Pulse 60 11/14/23 10:43 Resp 16 11/14/23 10:43 BP 126/72 11/14/23 10:43 Pulse Ox 98 11/14/23 10:43 O2 Del Method Room Air 11/14/23 10:43 Allergies Allergy/AdvReac Type Severity Reaction Status Date / Time No Known Allergies Allergy Verified 11/10/23 09:54 Home Medications Medication Instructions Recorded Confirmed Type ciprofloxacin HCl 500 mg tablet 500 mg PO Q12H #20 tabs 11/08/23 11/10/23 Rx (Cipro) hydrocodone 5 mg-acetaminophen 325 1 tablet PO Q6H PRN pain #14 tabs 11/08/23 11/10/23 Rx mg tablet Laboratory Tests 11/14/23 04:24 WBC 9.2 K/mm3 (4.5-10.0) RBC 5.09 M/mm3 (4.6-6.20) Hgb 14.8 g/dL (14.0-18.0) Hct 44.4 % (42.0-52.0) MCV 87.2 fl (80-100) MCH 29.1 pg (26-34) MCHC 33.3 g/dl (32-36) RDW 12.4 % (11.5-14.5) Plt Count 466 H k/mm3 (150-375) MPV 8.9 fl (7.4-10.4) Sodium 139 mmol/L (137-145) Potassium 4.1 mmol/L (3.4-5.0) Chloride 106 mmol/L (98-107) Carbon Dioxide 23 mmol/L (22-30) Anion Gap 10 mmol/L (4-12) BUN 13 D mg/dL (9-20) Creatinine 0.80 mg/dL (0.7-1.3) Estim Creat Clear Calc 132 ml/min Estimated GFR > 60 (59 - ) Glucose 101 mg/dL (65-110) Calcium 9.4 mg/dL (8.4-10.2) Total Bilirubin 0.5 mg/dL (0.2-1.3) AST 32 U/L (17-59) ALT 124 H U/L (6-50) Alkaline Phosphatase 112 U/L (38-126) Total Protein 8.0 g/dL (6.3-8.2) Albumin 4.4 g/dL (3.5-5.1) Patient hx anesthesia problems: none Family hx anesthesia problems: none Results Review: All pre-operative results and documents have been reviewed as part of the pre-operative evaluation. [facility] Social History Social History Smoking status: Never smoker Alcohol intake: never Substance use: never Do You Feel Safe in your Home?: Yes Lack of Transportation: No Lack of Food: Never True Current Housing: I Have Housing Concerned About Future Housing: No Difficulty Paying Gas/Electric Bills: No Difficulty Paying for Meds: No Currently Unemployed: No Education: High School Diploma/GED Difficulty w/ Childcare or Family Care: No Spiritual care concerns: No Anes - Eval Final PreProcedure Day of Procedure 11/14/23 12:34 Patient weight: obese Heart: regular rate and rhythm Lungs: clear to auscultation Airway: Mallampati scale and special considerations (Missing several teeth, none loose. ) Neurological: alert and oriented and unresponsive Last oral intake: >/= 8 hours ASA classification: II Emergent: no Anesthetic plan: proceed Anesthesia type and monitoring: general and standard monitoring Results Review: All pre-operative results and documents have been reviewed as part of the pre-operative evaluation. Smokes approx 4-5 cigs/day. 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 Informed Consent: The patient's anesthetic plan and its attendant risks and benefits were discussed with the patient/family/POA. Questions were solicited and answers provided to the satisfaction of the patient/family/POA.
[2023-11-14] MEDS: BUPIVACAINE/EPINEPHRINE 0.5% 10 ML VIAL 30 ML INFILTRATE (12:44)
[2023-11-14] MEDS: fentaNYL CITRATE INJ (*CRX) 100 MCG/2 ML VIAL 25 MCG IV PUSH ×2 (16:21→16:25)
[2023-11-14] MEDS: oxyCODONE/ACETAMINOPHEN (*CRX) 10-325 MG TABLET 1 TAB PO (16:57)
[2023-11-14] MEDS: LACTATED RINGERS 1,000 ML 100 ML IV CONT (16:59)
[2023-11-14] MEDS: MORPHINE SULFATE (*CRX) 4 MG/ML INJ IV PUSH ×2 (19:23→23:37)
[2023-11-14] MEDS: MORPHINE SULFATE (*CRX) 2 MG/ML INJ IV PUSH (20:46)
[2023-11-15] MEDS: oxyCODONE/ACETAMINOPHEN (*CRX) 10-325 MG TABLET 1 TAB PO ×3 (02:48→16:56)
--- NOTE | 2023-11-15 02:55 | PC.NURSE ---
PT CONTINUES TO COMPLAIN OF PAIN. CURRENTLY COMPLAINING OF BACK PAIN AND NUMBNESS IN FEET. LEGS APPEAR FINE, PULSES GOOD, AND SENSATION NORMAL. ASKED THE PT DID HE THINK HE COULD STAND UP BECAUSE IT COULD BE DUE TO PROLONGED LYING IN THE BED. PT DECLINED. OFFERED TO REPOSITION THE PT HE ALSO DECLINED. PT DOES NOT APPEAR TO BE IN PAIN WHEN I CHECK ON HIM DURING MY ROUNDS HE IS USUALLY SLEEPING AND APPEARS COMFORTABLE. PT IS UNMOTIVATED TO MOVE. I HAVE SUGGESTED PT GET UP AND WALK MULTIPLE TIMES THROUGHOUT MY SHIFT AND PT CONTINUES TO DECLINE. PT IS ALSO NOT AMBULATING TO THE RESTROOM OPTING TO USE THE URINAL IN THE BED.
[2023-11-15 04:07] VITALS: BP 150/87; PULSE 101; RESP 18; TEMP 36.6; O2SAT 94
[2023-11-15] MEDS: PIPERACILLN/TAZ 3.375GM/NS50ML 3.375 GM/50 ML BAG IVPB ×3 (05:12→17:00)
[2023-11-15] MEDS: oxyCODONE/ACETAMINOPHEN (*CRX) 5-325 MG TABLET 1 TABLET PO (05:12)
[2023-11-15 05:33] LABS: Hematocrit 44.4 % (42.0-52.0); Hemoglobin 14.6 g/dL (14.0-18.0); Mean Corpuscular HGB Conc 32.9 g/dl (32-36); Mean Corpuscular Volume 88.1 fl (80-100); Mean Platelet Volume 9.1 fl (7.4-10.4); Platelet Count Result 542 k/mm3 (150-375); Red Blood Count 5.04 M/mm3 (4.6-6.20); Red Cell Distribution Width 12.6 % (11.5-14.5); White Blood Count 13.4 K/mm3 (4.5-10.0)
[2023-11-15 05:41] LABS: Alanine Aminotransferase 248 U/L (6-50); Albumin Level 4.6 g/dL (3.5-5.1); Alkaline Phosphatase 106 U/L (38-126); Anion Gap 10 mmol/L (4-12); Aspartate Amino Transferase 198 U/L (17-59); Bilirubin,Total 0.6 mg/dL (0.2-1.3); Blood Urea Nitrogen 10 mg/dL (9-20); Calcium 9.5 mg/dL (8.4-10.2); Carbon Dioxide 29 mmol/L (22-30); Chloride 100 mmol/L (98-107); Estimated CRCL calculation 108 ml/min; Estimated Glomerular Filt Rate > 60; Glucose 139 mg/dL (65-110); Potassium 3.7 mmol/L (3.4-5.0); Sodium 139 mmol/L (137-145)
[2023-11-15 08:00] VITALS: RESP 18
[2023-11-15] MEDS: ENOXAPARIN 40 MG/0.4 ML SYRINGE SUB-Q (08:42)
[2023-11-15] MEDS: MORPHINE SULFATE (*CRX) 4 MG/ML INJ IV PUSH ×4 (08:42→21:13)
[2023-11-15 10:20] VITALS: BP 144/82; PULSE 90; RESP 17; TEMP 36.6; O2SAT 95
[2023-11-15 14:20] VITALS: BP 142/78; PULSE 88; RESP 17; TEMP 36.5; O2SAT 98
[2023-11-15 18:20] VITALS: BP 138/72; PULSE 89; RESP 18; TEMP 36.5; O2SAT 99
--- NOTE | 2023-11-15 20:25 | WPDPN ---
Progress Note: A&P Assessment and Plan (1) Cholecystitis with cholelithiasis: Qualifiers: Cholelithiasis location: gallbladder Cholecystitis acuity: acute and chronic Biliary obstruction: without biliary obstruction Qualified Code(s): K80.12 - Calculus of gallbladder with acute and chronic cholecystitis without obstruction Code(s): K80.10 - Calculus of gallbladder with chronic cholecystitis without obstruction Status: Acute Assessment and Plan: Postop day 1. No evidence of large bile leak. Continue drain for now. Continue to see if he can advance low-fat diet tomorrow. Get up and ambulate out of bed to chair. Repeat labs tomorrow morning. Subjective Date/time seen: 11/15/23 20:25 Interval history: Patient is postop day 1 after laparoscopic cholecystectomy for acute cholecystitis. 400cc of blood loss as per Dr. Abraham note. Today he still has quite a bit of incisional pain across the upper abdomen. No nausea or vomiting. No fevers or chills. White blood cell count is 13,000 and hemoglobin is 14.6. He did tolerate small amount of solid low-fat diet. Exam GI: Other: Abdomen is mildly distended. Expected mild tenderness across the upper abdomen around his port sites. ARMANDO drain in place with drainage of serosanguineous fluid. Questionable slight bile tinge but no large bile leak. Objective Data Vital Signs Vital Signs: Vital Signs - 24 hr 11/14/23 20:39 11/14/23 23:52 11/15/23 04:07 Temperature 36.7 C 36.5 C 36.6 C Pulse Rate 76 76 101 H Respiratory Rate 16 16 18 Blood Pressure 137/81 142/88 H 150/87 H Pulse Oximetry 97 98 94 Oxygen Delivery 11/15/23 08:00 11/15/23 10:20 11/15/23 14:20 Temperature 36.6 C 36.5 C Pulse Rate 90 88 Respiratory Rate 18 17 17 Blood Pressure 144/82 H 142/78 H Pulse Oximetry 95 98 Oxygen Delivery Room Air 11/15/23 18:20 Temperature 36.5 C Pulse Rate 89 Respiratory Rate 18 Blood Pressure 138/72 Pulse Oximetry 99 Oxygen Delivery Intake/Output Intake/Output: Intake & Output 11/12/23 11/13/23 11/14/23 11/15/23 23:59 23:59 23:59 23:59 Intake Total 3595 7238 1150 780 Output Total 3 0068 0485 Balance 9180 4215 -2162 -3909 Meds/Results Medications: Active Medications Generic Name Dose Route Start Last Admin Trade Name Freq PRN Reason Stop Dose Admin Acetaminophen 500 mg 11/11/23 17:51 Acetaminophen 500 Mg Tablet PO Q6H PRN Pain Rated 1-3 Diphenhydramine HCl 25 mg 11/11/23 17:51 Diphenhydramine Hcl Inj 50 Mg/Ml Vial IV PUSH Q6H PRN Itching Enoxaparin Sodium 40 mg 11/12/23 09:00 11/15/23 08:42 Enoxaparin 40 Mg/0.4 Ml Syringe SUB-Q 40 mg DAILY MILTON Administration Piperacillin/Tazobactam/Dextrose 3.375 gm in 50 mls @ 100 mls/hr 11/10/23 18:00 11/15/23 17:00 Zosyn 3.375 Gm/Ns 50 Ml IVPB 100 mls/hr Q6H MILTON Administration Ibuprofen 800 mg in 200 mls @ 400 mls/hr 11/11/23 17:51 11/14/23 06:24 Caldolor 800 Mg/200 Ml IVPB Infused Q6H PRN Infusion Breakthrough Pain Rated 1-3 or NPO Morphine Sulfate 2 mg 11/11/23 17:51 11/14/23 20:46 Morphine Sulfate (*Crx) 2 Mg/Ml Inj IV PUSH 2 mg Q2H PRN Administration Breakthrough Pain Rated 4-6 or NPO Morphine Sulfate 4 mg 11/11/23 17:51 11/15/23 16:55 Morphine Sulfate (*Crx) 4 Mg/Ml Inj IV PUSH 4 mg Q2H PRN Administration Breakthrough Pain Rated 7-10 or NPO Naloxone HCl 0.1 mg 11/11/23 17:51 Naloxone Hcl 0.4 Mg/Ml Vial IV PUSH Q2M PRN Opiate Reversal Ondansetron HCl 4 mg 11/10/23 11:51 11/10/23 17:48 Ondansetron Inj 4 Mg/2 Ml Vial IV PUSH 4 mg Q4H PRN Administration Nausea Oxycodone/Acetaminophen 1 tablet 11/11/23 17:51 11/15/23 05:12 Oxycodone/Acetaminophen (*Crx) 5-325 Mg Tablet PO 1 tablet Q4H PRN Administration Pain Rated 4-6 Oxycodone/Acetaminophen 1 tab 11/11/23 17:51 11/15/23 16:56 Oxycodone/Acetaminophen (*
[2023-11-15 21:56] VITALS: BP 128/65; PULSE 84; RESP 16; TEMP 37; O2SAT 93
[2023-11-16] MEDS: PIPERACILLN/TAZ 3.375GM/NS50ML 3.375 GM/50 ML BAG IVPB ×4 (00:01→17:18)
[2023-11-16] MEDS: oxyCODONE/ACETAMINOPHEN (*CRX) 10-325 MG TABLET 1 TAB PO ×4 (00:02→20:27)
[2023-11-16 05:43] VITALS: BP 125/72; PULSE 96; RESP 16; TEMP 36.9; O2SAT 93
[2023-11-16 05:56] LABS: Basophils Absolute Auto 0.1 K/mm3 (0.0-0.1); Basophils Percent Auto 0.5 % (0.2-1.2); Eosinophils Percent Auto 0.3 % (0-4.4); Hematocrit 42.6 % (42.0-52.0); Hemoglobin 13.7 g/dL (14.0-18.0); Immature Granulocyte Absolute 0.05 K/mm3 (0.00-0.031); Immature Granulocyte Percent A 0.4 % (0-0.5); Lymphocytes Absolute Auto 2.15 K/mm3 (0.9-3.2); Lymphocytes Percent Auto 16.5 % (18.3-44.2); Mean Corpuscular HGB Conc 32.2 g/dl (32-36); Mean Corpuscular Hemoglobin 28.7 pg (26-34); Mean Corpuscular Volume 89.1 fl (80-100); Mean Platelet Volume 8.9 fl (7.4-10.4); Monocytes Absolute Auto 1.4 K/mm3 (0.1-0.6); Monocytes Percent Auto 10.5 % (2.6-8.5); Neutrophils Absolute Auto 9.4 K/mm3 (1.3-6.7); Neutrophils Percent Auto 71.8 % (45.5-73.1); Platelet Count Result 494 k/mm3 (150-375); Red Blood Count 4.78 M/mm3 (4.6-6.20); Red Cell Distribution Width 12.6 % (11.5-14.5)
[2023-11-16 06:18] LABS: Alanine Aminotransferase 399 U/L (6-50); Albumin Level 4.3 g/dL (3.5-5.1); Alkaline Phosphatase 107 U/L (38-126); Anion Gap 7 mmol/L (4-12); Aspartate Amino Transferase 263 U/L (17-59); Bilirubin,Total 0.8 mg/dL (0.2-1.3); Blood Urea Nitrogen 8 mg/dL (9-20); Calcium 9.4 mg/dL (8.4-10.2); Carbon Dioxide 30 mmol/L (22-30); Chloride 99 mmol/L (98-107); Estimated CRCL calculation 119 ml/min; Estimated Glomerular Filt Rate > 60; Glucose 107 mg/dL (65-110); Potassium 3.9 mmol/L (3.4-5.0); Sodium 136 mmol/L (137-145)
[2023-11-16] MEDS: ENOXAPARIN 40 MG/0.4 ML SYRINGE SUB-Q (09:00)
[2023-11-16] MEDS: MORPHINE SULFATE (*CRX) 4 MG/ML INJ IV PUSH ×2 (09:08→17:19)
[2023-11-16 09:20] VITALS: BP 145/76; PULSE 94; RESP 16; TEMP 36; O2SAT 96
--- NOTE | 2023-11-16 10:53 | WPDPN ---
Progress Note: A&P Assessment and Plan (1) Cholecystitis with cholelithiasis: Qualifiers: Cholelithiasis location: gallbladder Cholecystitis acuity: acute and chronic Biliary obstruction: without biliary obstruction Qualified Code(s): K80.12 - Calculus of gallbladder with acute and chronic cholecystitis without obstruction Code(s): K80.10 - Calculus of gallbladder with chronic cholecystitis without obstruction Status: Acute Assessment and Plan: Apparently as per Dr. Lau operative note this is a very difficult laparoscopic gallbladder surgery. Loss was about 400cc. Patient is being managed with oxycodone for oral pain medications and receiving some backup breakthrough morphine. He has not been throwing up and is been tolerating some oral intake. I do not think he is getting off liquids and so will go ahead and start him on lactated Ringer's at60cc/hour. We will continue with [place] [address] he had a purulent acute cholecystitis. Will need to get him up out of bed sitting up in a chair and walking to the bathroom. Adequate analgesia with oxycodone and breakthrough morphine will be administered. Make sure that we have him on DVT prophylaxis with SCDs as well as chemical prophylaxis since he does not seem to be getting up out of bed very well. Contnue supportive management. Subjective Date/time seen: 11/16/23 10:53 Interval history: Patient was seen with the aid of the video facility rehab director. Again today he was lying flat in bed and was stated he was having upper abdominal pain which was keeping him from being able to ambulate up out of bed. He is using a urinal acetic getting up and walking to the bathroom. He denies having any nausea but is not eating very much orally. He seems to be drinking better. White blood count is still 13,000. liver enzymes are still mildly elevated. Exam GI: Other: Abdomen is soft and minimally distended. Port incisions are healing well. Right upper quadrant drain serosanguineous without obvious bile leak. Objective Data Vital Signs Vital Signs: Vital Signs - 24 hr 11/15/23 14:20 11/15/23 18:20 11/15/23 20:00 Temperature 36.5 C 36.5 C Pulse Rate 88 89 Respiratory Rate 17 18 Blood Pressure 142/78 H 138/72 Pulse Oximetry 98 99 Oxygen Delivery Room Air 11/15/23 21:56 11/16/23 05:43 11/16/23 09:20 Temperature 37.0 C 36.9 C 36.0 C L Pulse Rate 84 96 94 Respiratory Rate 16 16 16 Blood Pressure 128/65 125/72 145/76 H Pulse Oximetry 93 93 96 Oxygen Delivery 11/16/23 08:55 Temperature Pulse Rate Respiratory Rate Blood Pressure Pulse Oximetry Oxygen Delivery Room Air Intake/Output Intake/Output: Intake & Output 11/13/23 11/14/23 11/15/23 11/16/23 23:59 23:59 23:59 23:59 Intake Total 3588 1150 830 650 Output Total 3 3018 3590 1130 Balance 3585 -1868 -2760 -480 Meds/Results Medications: Active Medications Generic Name Dose Route Start Last Admin Trade Name Freq PRN Reason Stop Dose Admin Acetaminophen 500 mg 11/11/23 17:51 Acetaminophen 500 Mg Tablet PO Q6H PRN Pain Rated 1-3 Diphenhydramine HCl 25 mg 11/11/23 17:51 Diphenhydramine Hcl Inj 50 Mg/Ml Vial IV PUSH Q6H PRN Itching Enoxaparin Sodium 40 mg 11/12/23 09:00 11/16/23 09:00 Enoxaparin 40 Mg/0.4 Ml Syringe SUB-Q 40 mg DAILY MILTON Administration Piperacillin/Tazobactam/Dextrose 3.375 gm in 50 mls @ 100 mls/hr 11/10/23 18:00 11/16/23 06:08 Zosyn 3.375 Gm/Ns 50 Ml IVPB Infused Q6H MILTON Infusion Ibuprofen 800 mg in 200 mls @ 400 mls/hr 11/11/23 17:51 11/14/23 06:24 Caldolor 800 Mg/200 Ml IVPB Infused Q6H PRN Infusion Breakthrough Pain Rated 1-3 or NPO Lactated Ringer's 1,000 mls @ 60 mls/hr 11/16/23 10:25 Lr - Lactated Ringers Iv IV CONT .[id number] MILTON Morphine Sulfate 2 mg 11/11/23 17:51 11/14/23 20:46 Morphine Sulfate (*Crx) 2 Mg/Ml Inj IV
[2023-11-16] MEDS: LACTATED RINGERS 1,000 ML 60 ML IV CONT (12:36)
[2023-11-16 14:41] VITALS: BP 113/71; PULSE 96; RESP 16; TEMP 36.8; O2SAT 97
[2023-11-16 18:21] VITALS: BP 112/66; PULSE 85; RESP 16; TEMP 37.1; O2SAT 96
[2023-11-16 19:41] VITALS: BP 133/61; PULSE 82; RESP 20; TEMP 36.2; O2SAT 96
[2023-11-17] MEDS: PIPERACILLN/TAZ 3.375GM/NS50ML 3.375 GM/50 ML BAG IVPB ×4 (00:09→18:48)
[2023-11-17] MEDS: oxyCODONE/ACETAMINOPHEN (*CRX) 5-325 MG TABLET 1 TABLET PO (00:10)
[2023-11-17 05:27] VITALS: BP 137/71; PULSE 74; RESP 20; TEMP 36.1; O2SAT 74
[2023-11-17] MEDS: LACTATED RINGERS 1,000 ML 60 ML IV CONT (06:06)
[2023-11-17] MEDS: oxyCODONE/ACETAMINOPHEN (*CRX) 10-325 MG TABLET 1 TAB PO ×3 (06:07→21:24)
[2023-11-17] MEDS: ENOXAPARIN 40 MG/0.4 ML SYRINGE SUB-Q (10:10)
[2023-11-17] MEDS: MORPHINE SULFATE (*CRX) 2 MG/ML INJ IV PUSH (10:13)
--- NOTE | 2023-11-17 14:52 | WPDPN ---
Progress Note: A&P Assessment and Plan (1) Cholecystitis with cholelithiasis: Qualifiers: Cholelithiasis location: gallbladder Cholecystitis acuity: acute and chronic Biliary obstruction: without biliary obstruction Qualified Code(s): K80.12 - Calculus of gallbladder with acute and chronic cholecystitis without obstruction Code(s): K80.10 - Calculus of gallbladder with chronic cholecystitis without obstruction Status: Acute Assessment and Plan: Postop day 3. After difficult laparoscopic cholecystectomy by Dr. Morris. He continues to slowly improve. He is ambulating more. Tried to explain to him that he will have some pain when he takes a deep breath because of the incisions and is not really feasible to have him having a no pain whatsoever when he ambulates at this point in his recovery. I encouraged to use to oral pain medications as scheduled. White blood count remains about 13,000. Will continue on the Zosyn for now. His liver and arm are stable but still mildly elevated. There could be some degree of local liver ischemia due to the difficulty in removing the gallbladder. If this is the case that should recover. If he continues to have significant right upper quadrant pain and elevated liver enzymes and a CT scan with IV contrast to see if there are any areas of ischemia of the liver would be indicated. No evidence of bile leak. Total bilirubin is still normal. Subjective Date/time seen: 11/17/23 14:52 Interval history: Patient doing better today. He is up walking around axial to shower today. Sitting up in a chair today. Tolerated some pudding today and has been drinking Justine Sun drinks. He complains of pain when he takes a deep breath when he moves. He has been taking 10/325 Percocet for his pain. No nausea or vomiting. Exam GI: Other: Abdomen is soft and nondistended. Port site incisions are healing well without redness or drainage. ARMANDO drain is serosanguineous without evidence of bile in the drain. Objective Data Vital Signs Vital Signs: Vital Signs - 24 hr 11/16/23 18:21 11/16/23 19:41 11/16/23 20:00 Temperature 37.1 C 36.2 C L Pulse Rate 85 82 Respiratory Rate 16 20 Blood Pressure 112/66 133/61 Pulse Oximetry 96 96 Oxygen Delivery Room Air 11/17/23 05:27 11/17/23 10:15 Temperature 36.1 C L Pulse Rate 74 Respiratory Rate 20 Blood Pressure 137/71 Pulse Oximetry 74 L Oxygen Delivery Room Air Intake/Output Intake/Output: Intake & Output 11/14/23 11/15/23 11/16/23 11/17/23 23:59 23:59 23:59 23:59 Intake Total 4699 113 8018 2130 Output Total 3018 3590 2940 1800 Balance -2838 -7020 -600 330 Meds/Results Medications: Active Medications Generic Name Dose Route Start Last Admin Trade Name Freq PRN Reason Stop Dose Admin Acetaminophen 500 mg 11/11/23 17:51 Acetaminophen 500 Mg Tablet PO Q6H PRN Pain Rated 1-3 Diphenhydramine HCl 25 mg 11/11/23 17:51 Diphenhydramine Hcl Inj 50 Mg/Ml Vial IV PUSH Q6H PRN Itching Enoxaparin Sodium 40 mg 11/12/23 09:00 11/17/23 10:10 Enoxaparin 40 Mg/0.4 Ml Syringe SUB-Q 40 mg DAILY MILTON Administration Piperacillin/Tazobactam/Dextrose 3.375 gm in 50 mls @ 100 mls/hr 11/10/23 18:00 11/17/23 13:08 Zosyn 3.375 Gm/Ns 50 Ml IVPB 100 mls/hr Q6H MILTON Administration Ibuprofen 800 mg in 200 mls @ 400 mls/hr 11/11/23 17:51 11/14/23 06:24 Caldolor 800 Mg/200 Ml IVPB Infused Q6H PRN Infusion Breakthrough Pain Rated 1-3 or NPO Lactated Ringer's 1,000 mls @ 60 mls/hr 11/16/23 10:25 11/17/23 06:06 Lr - Lactated Ringers Iv IV CONT 60 mls/hr .[id number] MILTON Administration Morphine Sulfate 2 mg 11/11/23 17:51 11/17/23 10:13 Morphine Sulfate (*Crx) 2 Mg/Ml Inj IV PUSH 2 mg Q2H PRN Administration Breakthrough Pain Rated 4-6 or NPO Morphine Sulfate 4 mg 11/11/23 17:51 11/16/23 17:19 Morphine Sulfate (*Crx) 4 Mg/Ml Inj IV P
[2023-11-17 14:57] VITALS: BP 120/68; PULSE 91; RESP 16; TEMP 36; O2SAT 97
[2023-11-17] MEDS: IBUPROFEN IV 800 MG/200 ML 800 MG/200 ML BAG 400 MG IVPB (15:55)
[2023-11-17 19:51] VITALS: BP 119/62; PULSE 62; RESP 24; TEMP 36.4; O2SAT 99
[2023-11-18] MEDS: IBUPROFEN IV 800 MG/200 ML 800 MG/200 ML BAG 400 MG IVPB ×4 (00:02→22:28)
[2023-11-18] MEDS: PIPERACILLN/TAZ 3.375GM/NS50ML 3.375 GM/50 ML BAG IVPB ×4 (00:38→18:39)
[2023-11-18] MEDS: oxyCODONE/ACETAMINOPHEN (*CRX) 10-325 MG TABLET 1 TAB PO ×3 (04:08→18:38)
[2023-11-18] MEDS: LACTATED RINGERS 1,000 ML 60 ML IV CONT (04:10)
[2023-11-18 04:33] VITALS: BP 125/65; PULSE 64; RESP 20; TEMP 36.8; O2SAT 99
[2023-11-18 04:40] LABS: Basophils Absolute Auto 0.1 K/mm3 (0.0-0.1); Basophils Percent Auto 0.7 % (0.2-1.2); Eosinophils Absolute Auto 0.2 K/mm3 (0-0.3); Eosinophils Percent Auto 1.8 % (0-4.4); Hematocrit 36.2 % (42.0-52.0); Hemoglobin 11.9 g/dL (14.0-18.0); Immature Granulocyte Absolute 0.07 K/mm3 (0.00-0.031); Immature Granulocyte Percent A 0.9 % (0-0.5); Lymphocytes Absolute Auto 2.38 K/mm3 (0.9-3.2); Mean Corpuscular HGB Conc 32.9 g/dl (32-36); Mean Corpuscular Hemoglobin 28.9 pg (26-34); Mean Corpuscular Volume 87.9 fl (80-100); Mean Platelet Volume 8.9 fl (7.4-10.4); Monocytes Absolute Auto 0.8 K/mm3 (0.1-0.6); Monocytes Percent Auto 9.9 % (2.6-8.5); Neutrophils Absolute Auto 4.8 K/mm3 (1.3-6.7); Neutrophils Percent Auto 57.7 % (45.5-73.1); Platelet Count Result 463 k/mm3 (150-375); Red Blood Count 4.12 M/mm3 (4.6-6.20); Red Cell Distribution Width 12.4 % (11.5-14.5); White Blood Count 8.2 K/mm3 (4.5-10.0)
[2023-11-18 04:56] LABS: Alanine Aminotransferase 268 U/L (6-50); Albumin Level 3.7 g/dL (3.5-5.1); Alkaline Phosphatase 90 U/L (38-126); Anion Gap 3 mmol/L (4-12); Aspartate Amino Transferase 50 U/L (17-59); Bilirubin,Total 0.5 mg/dL (0.2-1.3); Blood Urea Nitrogen 9 mg/dL (9-20); Calcium 9.2 mg/dL (8.4-10.2); Carbon Dioxide 29 mmol/L (22-30); Chloride 106 mmol/L (98-107); Estimated CRCL calculation 150 ml/min; Estimated Glomerular Filt Rate > 60; Glucose 98 mg/dL (65-110); Potassium 3.7 mmol/L (3.4-5.0); Sodium 138 mmol/L (137-145)
--- NOTE | 2023-11-18 10:42 | WPDPN ---
Progress Note: A&P Assessment and Plan (1) Acute cholecystitis: Code(s): K81.0 - Acute cholecystitis Status: Acute Assessment and Plan: Patient's liver enzymes are markedly down trending. White blood count is normalized as well. We will continue IV antibiotics was here in the hospital and then transition oral antibiotics at discharge. Hopefully will discharge tomorrow as he has markedly improved. Drain can be removed before discharge. Continue supportive management today. Subjective Date/time seen: 11/18/23 10:42 Interval history: Patient better today. Preop ambulate easily. Tolerated more solid food. Received only oral pain medications overnight and is still getting some scheduled IV ibuprofen. Drain output is minimal. Liver enzymes have started to trend down and white blood count is now normal. Exam GI: Other: Abdomen is soft and nondistended. Port sites are healing. ARMANDO drain is minimal serosanguineous. Tenderness only at the port sites. Objective Data Vital Signs Vital Signs: Vital Signs - 24 hr 11/17/23 14:57 11/17/23 19:51 11/18/23 04:33 Temperature 36.0 C L 36.4 C 36.8 C Pulse Rate 91 62 64 Respiratory Rate 16 24 H 20 Blood Pressure 120/68 119/62 125/65 Pulse Oximetry 97 99 99 Intake/Output Intake/Output: Intake & Output 11/15/23 11/16/23 11/17/23 11/18/23 23:59 23:59 23:59 23:59 Intake Total 830 2340 5270 500 Output Total 3590 2940 5020 800 Balance -2760 -600 250 -300 Meds/Results Medications: Active Medications Generic Name Dose Route Start Last Admin Trade Name Freq PRN Reason Stop Dose Admin Acetaminophen 500 mg 11/11/23 17:51 Acetaminophen 500 Mg Tablet PO Q6H PRN Pain Rated 1-3 Diphenhydramine HCl 25 mg 11/11/23 17:51 Diphenhydramine Hcl Inj 50 Mg/Ml Vial IV PUSH Q6H PRN Itching Enoxaparin Sodium 40 mg 11/12/23 09:00 11/17/23 10:10 Enoxaparin 40 Mg/0.4 Ml Syringe SUB-Q 40 mg DAILY MILTON Administration Piperacillin/Tazobactam/Dextrose 3.375 gm in 50 mls @ 100 mls/hr 11/10/23 18:00 11/18/23 05:39 Zosyn 3.375 Gm/Ns 50 Ml IVPB Infused Q6H MILTON Infusion Lactated Ringer's 1,000 mls @ 60 mls/hr 11/16/23 10:25 11/18/23 04:10 Lr - Lactated Ringers Iv IV CONT 60 mls/hr .[id number] MILTON Administration Ibuprofen 800 mg in 200 mls @ 400 mls/hr 11/17/23 15:00 11/18/23 06:24 Caldolor 800 Mg/200 Ml IVPB Infused Q8H MILTON Infusion Morphine Sulfate 2 mg 11/11/23 17:51 11/17/23 10:13 Morphine Sulfate (*Crx) 2 Mg/Ml Inj IV PUSH 2 mg Q2H PRN Administration Breakthrough Pain Rated 4-6 or NPO Morphine Sulfate 4 mg 11/11/23 17:51 11/16/23 17:19 Morphine Sulfate (*Crx) 4 Mg/Ml Inj IV PUSH 4 mg Q2H PRN Administration Breakthrough Pain Rated 7-10 or NPO Naloxone HCl 0.1 mg 11/11/23 17:51 Naloxone Hcl 0.4 Mg/Ml Vial IV PUSH Q2M PRN Opiate Reversal Ondansetron HCl 4 mg 11/10/23 11:51 11/10/23 17:48 Ondansetron Inj 4 Mg/2 Ml Vial IV PUSH 4 mg Q4H PRN Administration Nausea Oxycodone/Acetaminophen 1 tablet 11/11/23 17:51 11/17/23 00:10 Oxycodone/Acetaminophen (*Crx) 5-325 Mg Tablet PO 1 tablet Q4H PRN Administration Pain Rated 4-6 Oxycodone/Acetaminophen 1 tab 11/11/23 17:51 11/18/23 04:08 Oxycodone/Acetaminophen (*Crx) 10-325 Mg Tablet PO 1 tab Q6H PRN Administration Pain Rated 7-10 Radiology Results: ITS Impressions Upper Quadrant Ultrasound 11/10/23 10:55 IMPRESSION: Cholelithiasis and gallbladder wall thickening, sludge in the dependent gallbladder. Acute cholecystitis is suspected based upon the sonographic and recent CT abdomen findings. Labs Labs: Laboratory Results - last 24 hr 11/18/23 04:23 WBC 8.2 RBC 4.12 L Hgb 11.9 L Hct 36.2 L MCV 87.9 MCH 28.9 MCHC 32.9 RDW 12.4 Plt Count 463 H MPV 8.9 Immature Gran % (Auto) 0.9 H Neut % (Auto) 57.7 Lymph % (Au
[2023-11-18] MEDS: ENOXAPARIN 40 MG/0.4 ML SYRINGE SUB-Q (10:43)
[2023-11-18 19:53] VITALS: BP 132/72; PULSE 71; RESP 20; TEMP 36.5; O2SAT 98
--- NOTE | 2023-11-18 22:48 | PC.NURSE ---
11/10/23 2000: CORRECTION TO INTEGUMENTARY DOCUMENTATION DONE BY HILARIO MCCORD. PT DOES NOT HAVE A PRESSURE WOUND/NO WOUND PHOTOS OBTAINED. YES DOCUMENTED IN ERROR.
[2023-11-19] MEDS: PIPERACILLN/TAZ 3.375GM/NS50ML 3.375 GM/50 ML BAG IVPB ×2 (00:19→05:26)
[2023-11-19] MEDS: oxyCODONE/ACETAMINOPHEN (*CRX) 10-325 MG TABLET 1 TAB PO ×3 (00:20→12:08)
[2023-11-19] MEDS: LACTATED RINGERS 1,000 ML 60 ML IV CONT (03:03)
[2023-11-19 04:23] VITALS: BP 104/58; PULSE 56; RESP 20; TEMP 36.9; O2SAT 97
[2023-11-19 05:59] LABS: Basophils Percent Auto 0.3 % (0.2-1.2); Eosinophils Absolute Auto 0.2 K/mm3 (0-0.3); Eosinophils Percent Auto 1.7 % (0-4.4); Hematocrit 32.5 % (42.0-52.0); Hemoglobin 10.4 g/dL (14.0-18.0); Immature Granulocyte Absolute 0.06 K/mm3 (0.00-0.031); Immature Granulocyte Percent A 0.6 % (0-0.5); Lymphocytes Absolute Auto 2.94 K/mm3 (0.9-3.2); Lymphocytes Percent Auto 29.1 % (18.3-44.2); Mean Corpuscular Hemoglobin 28.7 pg (26-34); Mean Corpuscular Volume 89.5 fl (80-100); Mean Platelet Volume 9.1 fl (7.4-10.4); Monocytes Absolute Auto 0.9 K/mm3 (0.1-0.6); Monocytes Percent Auto 8.4 % (2.6-8.5); Neutrophils Absolute Auto 6.1 K/mm3 (1.3-6.7); Neutrophils Percent Auto 59.9 % (45.5-73.1); Platelet Count Result 541 k/mm3 (150-375); Red Blood Count 3.63 M/mm3 (4.6-6.20); Red Cell Distribution Width 12.3 % (11.5-14.5); White Blood Count 10.1 K/mm3 (4.5-10.0)
[2023-11-19] MEDS: IBUPROFEN IV 800 MG/200 ML 800 MG/200 ML BAG 400 MG IVPB (06:00)
[2023-11-19 06:08] LABS: Alanine Aminotransferase 186 U/L (6-50); Albumin Level 3.7 g/dL (3.5-5.1); Alkaline Phosphatase 78 U/L (38-126); Anion Gap 4 mmol/L (4-12); Aspartate Amino Transferase 34 U/L (17-59); Bilirubin,Total 0.4 mg/dL (0.2-1.3); Blood Urea Nitrogen 7 mg/dL (9-20); Calcium 9.3 mg/dL (8.4-10.2); Carbon Dioxide 29 mmol/L (22-30); Chloride 106 mmol/L (98-107); Estimated CRCL calculation 132 ml/min; Estimated Glomerular Filt Rate > 60; Glucose 94 mg/dL (65-110); Sodium 139 mmol/L (137-145)
[2023-11-19] MEDS: ENOXAPARIN 40 MG/0.4 ML SYRINGE SUB-Q (08:10)
--- NOTE | 2023-11-19 09:31 | WPDPN ---
Progress Note: A&P Assessment and Plan (1) Acute cholecystitis: Code(s): K81.0 - Acute cholecystitis Status: Acute Assessment and Plan: Doing well now. Liver enzymes almost normalized. White blood count is normal as well. Will discharge him home today and he is continue his Cipro for now. Discharge instructions in chart. Nurses remove the right upper quadrant abdominal drain before his discharge. Subjective Date/time seen: 11/19/23 09:31 Interval history: Patient doing well today. Less right upper quadrant incisional pain. Tolerating low-fat diet. [place] [address]. He seems to be doing very well. Exam Const: General: comfortable and no acute distress GI: Other: Abdomen is soft and nondistended. Port site incision healing well. Right upper quadrant drained minimal serosanguineous. No bile Objective Data Vital Signs Vital Signs: Vital Signs - 24 hr 11/18/23 10:30 11/18/23 19:53 11/19/23 04:23 Temperature 36.5 C 36.9 C Pulse Rate 71 56 L Respiratory Rate 20 20 Blood Pressure 132/72 104/58 L Pulse Oximetry 98 97 Oxygen Delivery Room Air Intake/Output Intake/Output: Intake & Output 11/16/23 11/17/23 11/18/23 11/19/23 23:59 23:59 23:59 23:59 Intake Total 2340 5270 3620 100 Output Total 2940 5020 1915 700 Balance -918 761 8418 -600 Meds/Results Medications: Active Medications Generic Name Dose Route Start Last Admin Trade Name Freq PRN Reason Stop Dose Admin Acetaminophen 500 mg 11/11/23 17:51 Acetaminophen 500 Mg Tablet PO Q6H PRN Pain Rated 1-3 Diphenhydramine HCl 25 mg 11/11/23 17:51 Diphenhydramine Hcl Inj 50 Mg/Ml Vial IV PUSH Q6H PRN Itching Enoxaparin Sodium 40 mg 11/12/23 09:00 11/19/23 08:10 Enoxaparin 40 Mg/0.4 Ml Syringe SUB-Q 40 mg DAILY MILTON Administration Piperacillin/Tazobactam/Dextrose 3.375 gm in 50 mls @ 100 mls/hr 11/10/23 18:00 11/19/23 05:56 Zosyn 3.375 Gm/Ns 50 Ml IVPB Infused Q6H MILTON Infusion Lactated Ringer's 1,000 mls @ 60 mls/hr 11/16/23 10:25 11/19/23 03:03 Lr - Lactated Ringers Iv IV CONT 60 mls/hr .[id number] MILTON Administration Ibuprofen 800 mg in 200 mls @ 400 mls/hr 11/17/23 15:00 11/19/23 06:00 Caldolor 800 Mg/200 Ml IVPB 400 mls/hr Q8H MILTON Administration Morphine Sulfate 2 mg 11/11/23 17:51 11/17/23 10:13 Morphine Sulfate (*Crx) 2 Mg/Ml Inj IV PUSH 2 mg Q2H PRN Administration Breakthrough Pain Rated 4-6 or NPO Morphine Sulfate 4 mg 11/11/23 17:51 11/16/23 17:19 Morphine Sulfate (*Crx) 4 Mg/Ml Inj IV PUSH 4 mg Q2H PRN Administration Breakthrough Pain Rated 7-10 or NPO Naloxone HCl 0.1 mg 11/11/23 17:51 Naloxone Hcl 0.4 Mg/Ml Vial IV PUSH Q2M PRN Opiate Reversal Ondansetron HCl 4 mg 11/10/23 11:51 11/10/23 17:48 Ondansetron Inj 4 Mg/2 Ml Vial IV PUSH 4 mg Q4H PRN Administration Nausea Oxycodone/Acetaminophen 1 tablet 11/11/23 17:51 11/17/23 00:10 Oxycodone/Acetaminophen (*Crx) 5-325 Mg Tablet PO 1 tablet Q4H PRN Administration Pain Rated 4-6 Oxycodone/Acetaminophen 1 tab 11/11/23 17:51 11/19/23 06:27 Oxycodone/Acetaminophen (*Crx) 10-325 Mg Tablet PO 1 tab Q6H PRN Administration Pain Rated 7-10 Radiology Results: ITS Impressions Upper Quadrant Ultrasound 11/10/23 10:55 IMPRESSION: Cholelithiasis and gallbladder wall thickening, sludge in the dependent gallbladder. Acute cholecystitis is suspected based upon the sonographic and recent CT abdomen findings. Labs Labs: Laboratory Results - last 24 hr 11/19/23 04:49 WBC 10.1 H RBC 3.63 L Hgb 10.4 L Hct 32.5 L MCV 89.5 MCH 28.7 MCHC 32.0 RDW 12.3 Plt Count 541 H MPV 9.1 Immature Gran % (Auto) 0.6 H Neut % (Auto) 59.9 Lymph % (Auto) 29.1 [place]o % (Auto) 8.4 Eos % (Auto) 1.7 Baso % (Auto) 0.3 Lymph # (Auto) 2.94 Otero
--- NOTE | 2023-11-19 11:22 | PC.NURSE ---
Director Of Reservations reviewed discharge instructions reviewed with patient using batch tester #[id number] all questions answered, patient verbalized understanding or instructions.
--- NOTE | 2023-12-10 13:45 | PM.DS ---
DS: Admitting Diagnosis Discharge Date 11/19/23 Admitting Diagnosis acute cholecystitis secondary to cholelithiasis DS: Discharge Diagnosis Discharge Diagnosis (1) Cholecystitis with cholelithiasis: Qualifiers: Cholelithiasis location: gallbladder Cholecystitis acuity: acute and chronic Biliary obstruction: without biliary obstruction Qualified Code(s): K80.12 - Calculus of gallbladder with acute and chronic cholecystitis without obstruction Code(s): K80.10 - Calculus of gallbladder with chronic cholecystitis without obstruction Status: Acute DS: Summary Hospital Course Reason for hospitalization: acute cholecystitis secondary to cholelithiasis Hospital Course: Patient came [facility] admitted through the emergency room with acute cholecystitis due to cholelithiasis. Patient was started IV antibiotics kept NPO. He was then taken to the operating room and underwent a complicated laparoscopic cholecystectomy by Dr. Morris. Apparently there was significant blood loss as well. Patient did not need a transfusion. He went to the surgical floor postoperatively with the drain in place. He complained postoperative pain is hemoglobin was monitored. He did not have enough blood loss to require blood transfusion. He did have a postoperative ileus which caused him to not take p.o. for couple days after the surgery but he was kept on IV antibiotics and IV fluids. Eventually his postoperative ileus resolved he was advanced on diet. His pain persisted and he was on IV pain medicines for couple days but then eventually was weaned off IV pain medication with oral pain medications. Had be encouraged on multiple occasions to get up out of bed and ambulate. During all of his visits we had to use a sleeve wheel maker via interpretation services online. Each day his wounds are inspected and they are healing well. On the day of discharge he was afebrile white blood cell was normal. Wounds are healing well without any problems. He was discharged home in improved condition. Instructions at discharge is as per Dr. Persaud discharge instructions are already in the chart. Status at Discharge Functional status at discharge: independent ambulation Overall status at discharge: patient is back to baseline Time Spent with Patient Time attestation: Total time spent providing and/or coordinating discharge services: Time spent: Less than 30 minutes Exam GI: Other: Abdomen is soft and nondistended. Port sites are healing well. There is no redness or drainage. No wound infections. DS: Data Data Completed and Pending Completed studies during hospitalization: Pending at discharge 11/14/23 12:49 Surgical [PTH] Routine Discharge Plan Discharge Attending physician on discharge: Levon Morris Consulting providers: Jose Tobin; William Thakur; Chris Rebollar; Yamila Norton Discharging Clinician: Lalito Zuniga Patient Disposition: Home, Self-Care Activity: may shower, no straining and as tolerated Diet: low fat Wound Care Instructions: incision open to air Discharge Instructions: 1. May shower the day of discharge. Please wash over incisions with soap and water.. If have dressing over drain site, remove it to shower and replace afterward. 2. Call office for: -Wound increasingly painful or bleeding -Vomiting -Fever of greater than 101 degrees 3. Expect some blood on dressing and old blood on skin. 4. If no bowel movement for three days, take 1 oz. (30 ml) Milk of Magnesia, if no results, take Fleets enema. 5. No heavy lifting > 15-20 pounds for 2 weeks. 6. No driving for 3 days or while taking narcotic pain medications. 7. Up walking 10-30 minutes three times per day. 8. Resume previous home medications. 9. Follow-up 10-14 days in office for wound check or as previously scheduled.
== END 2023-11-19 15:30 | disposition home or self-care (01) | DRG 263 ==
LOC: ANHED 12:41 → ANH2MED 12:43
PROVIDERS: Nurse Practitioner Family; Admitting Provider Surgery; Emergency Provider Physician Assistant; Visit Provider Surgery
PROC: 0FT44ZZ Resection of Gallbladder, Percutaneous Endoscopic Approach (ICD-10-PCS; CPT 47562; principal; 2023-11-14 11:30)
DX: K80.00 Calculus of gallbladder with acute cholecystitis without obstruction (principal); K91.61 Intraoperative hemorrhage and hematoma of a digestive system organ or structure complicating a digestive system procedure; E66.9 Obesity, unspecified; Z68.32 Body mass index [BMI] 32.0-32.9, adult; K91.30 Postprocedural intestinal obstruction, unspecified as to partial versus complete
CPT/HCPCS: 36415; 76705; 80053; 81001; 82248; 83605; 83690; 85025; 85027; 85610; 85730; 86850; 86900; 86901; 88304; 93005; 96361; 96365; 96366; 96374; 96375; 96376; 99285; A9270; G0378; J1100; J1170; J1650; J1741; J2250; J2270; J2405; J2543; J2704; J3010; J7030; J7120